=== PATIENT | female | born 1995 | race Caucasian/White ===

== ENCOUNTER 2018-03-05 12:34 | Emergency (ER) | payer SELFPAY ==
[~2018-03-05] VITALS: Ht 157.5 cm; Wt 69.0 kg
[2018-03-05] MEDS ORDERED: MAGNESIUM CITRATE 300ML SOLUTION PO ONE (13:00)
[2018-03-05 14:04] LABS: BASOPHILS % 0.5 % (0.0-2.0); EOSINOPHILS % 1.4 % (0.0-5.0); HEMOGLOBIN. 13.1 g/dL (12.0-16.0); LYMPHOCYTES % 24.6 % (20.0-50.0); MEAN CORPUSCULAR HEMOGLOBIN 32.6 pg (28.0-32.0); MEAN CORPUSCULAR VOLUME 94.7 fL (81.0-99.0); MEAN PLATELET VOLUME 8.5 fl (7.4-10.4); MONOCYTES % 7.6 % (2.0-8.0); NEUTROPHILS % 65.9 % (40.0-76.0); PLATELET 247 x1000/uL (130-400); RED BLOOD CELL COUNT 4.01 mill/uL (4.2-5.4); RED CELL DISTRIBUTION WIDTH 12.4 % (11.6-14.6)
[2018-03-05 14:07] LABS: CHLORIDE 104 mEq/L (98-107)
[2018-03-05] MEDS ORDERED: TRAMADOL 50MG TABLET PO ONE (16:45)
[2018-03-05 17:16] LABS: CLARITY URINE CLEAR (CLEAR); COLOR URINE YELLOW (YELLOW); KETONES URINE NEGATIVE (NEGATIVE); LEUKOCYTE ESTERASE URINE NEGATIVE (NEGATIVE); NITRITE URINE NEGATIVE (NEGATIVE); OCCULT BLOOD URINE 1+ (NEGATIVE); PH URINE 5.5 (4.5-8.0); PROTEIN URINE NEGATIVE (NEGATIVE); UROBILINOGEN URINE 0.2 E.U./dL (0.2-1.0)
[2018-03-05 18:39] VITALS: BP 113/74
== END 2018-03-05 18:41 | disposition home or self-care (01) ==
LOC: ER 12:34
DX: R10.13 Epigastric pain (principal); D25.9 Leiomyoma of uterus, unspecified
CPT/HCPCS: 36415; 74018; 76830; 76856; 80053; 81003; 81025; 83690; 85025; 93005; 99285